=== PATIENT | male | born 1975 | race Caucasian/White ===

== ENCOUNTER 2016-08-20 08:50 | Inpatient (IN) | payer OTHER ==
[2016-08-20 10:29] VITALS: BMI 23.3
--- NOTE | 2016-08-20 11:31 | HP ---
COWS - Scale Resting Pulse: 1= [place] 81-100 Sweatin=Flushed/Facial Moisture Restless Observation: 3= Extraneous Movement Pupil Size: 2= Moderately Dilated Bone or Joint Aches: 2= Severe Diffuse Aches Runny Nose/ Eye Tearin= Runny Nose/Eyes GI Upset > 30mins: 3= Vomiting/Diarrhea Tremor Observation: 2= Slight Tremor Visible Yawning Observation: 2= >3x During Session Anxiety or Irritability: 2=Irritable/Anxious Goose Flesh Skin: 0=Smooth Skin COWS Score: 21 Admission ROS BHS - HPI Chief Complaint: i need help to stop using heroin Allergies/Adverse Reactions: Allergies Allergy/AdvReac Type Severity Reaction Status Date / Time No Known Allergies Allergy Verified 08/20/16 11:08 History of Present Illness: this 40 years old male with heroin dependence,withdrawal symptom,never been in detox before type 2 dm non compliance nicotine dependence need help to stop using drug heroin Exam Limitations: No Limitations - Ebola screening Have you traveled outside of the country in the last 21 days: No Have you had contact with anyone from an Ebola affected area: No Have you been sick,other than usual withdrawal symptoms: No - Review of Systems Constitutional: Chills, Diaphoresis, Loss of Appetite, Malaise, Night Sweats, Changes in sleep, Weakness, Unintentional Wgt. Loss EENT: reports: Tearing, Nose Congestion Respiratory: reports: No Symptoms reported Cardiac: reports: No Symptoms Reported GI: reports: Diarrhea, Nausea, Vomiting, Abdominal cramping : reports: No Symptoms Reported Musculoskeletal: reports: Joint Pain, Muscle Pain, Joint Stiffness Integumentary: reports: Dryness Neuro: reports: Headache, Tremors Endocrine: reports: No Symptoms Reported, Other (type 2 dm) Hematology: reports: No Symptoms Reported Psychiatric: reports: Judgement Intact, Mood/Affect Appropiate, Orientated x3 Patient History - Patient Medical History Hx Anemia: No Hx Asthma: No Hx Chronic Obstructive Pulmonary Disease (COPD): No Hx Cancer: No Hx Cardiac Disorders: No Hx Hypertension: No Hx Hypercholesterolemia: No Hx Seizures: No Hx Diabetes: Yes (NIDDM non compliance) Hx Gastrointestinal Disorders: No Hx Liver Disease: Yes (ELEVATED ENZYMES) Hx Genitourinary Disorders: No Hx Sexually Transmitted Disorders: No Hx Renal Disease (ESRD): No Hx Thyroid Disease: No Hx Human Immunodeficiency Virus (HIV): No (last 2016 negative) Hx Hepatitis C: Yes (under care of pmd) Hx Depression: No Hx Suicide Attempt: No Hx Bipolar Disorder: No Hx Schizophrenia: No Other Medical History: no suicidal,no homicidal - Patient Surgical History Past Surgical History: Yes Hx Neurologic Surgery: No Hx Cataract Extraction: No Hx Cardiac Surgery: No Hx Lung Surgery: No Hx Breast Surgery: No Hx Breast Biopsy: No Hx Abdominal Surgery: No Hx Appendectomy: No Hx Cholecystectomy: No Hx Genitourinary Surgery: No Hx Section: No Hx Orthopedic Surgery: No Other Surgical History: left inguinal hernia repair in 2000 - PPD History Previous Implant?: Yes Documented Results: Negative w/o proof Implanted On Prior [facility] Admission?: No PPD to be Administered?: Yes - Smoking Cessation Smoking history: Current every day smoker Have you smoked in the past 12 months: Yes Aproximately how many cigarettes per day: 40 Hx Chewing Tobacco Use: No Initiated information on smoking cessation: Yes 'Breaking Loose' booklet given: 08/20/16 - Substance & Tx. History Hx Alcohol Use: No Hx Substance Use: Yes Substance Use Type: Heroin Hx Substance Use Treatment: No - Substances Abused heroin Route: Injection Frequency: Daily Amount used: 20 bags Age of first use: 28 Date of Last Use: 08/19/16 Family Disease History - Family Disease History Family History: Denies Admission Physical Exam S - Vital Signs Vital Signs: Vital Signs - 24 hr 08/20/16 10:26 Temperature 97.1 F L Pulse Rate 80 Respiratory 18 Rate Blood Pressure 109/70 - Physical General Appearance: Yes: Moderate Distress, Tremorous, Irritable, Sweating, Anxious HEENTM: Yes: Hearing grossly Normal, Normal ENT Inspection, MAX, Pharynx Normal , Nasal Congestion Respiratory: Yes: Lungs Clear, Normal Breath Sounds, No Respiratory Distress Neck: Yes: Within Normal Limits Breast: Yes: Within Normal Limits Cardiology: Yes: Within Normal Limits, Regular Rate, S1, S2 Abdominal: Yes: Within Normal Limits, Normal Bowel Sounds, Non Tender, Soft Genitourinary: Yes: Within Normal Limits Back: Yes: Within Normal Limits, Normal Inspection, Muscle Spasm Musculoskeletal: Yes: full range of Motion, Back pain, Muscle Pain Extremities: Yes: Normal Inspection, Normal Range of Motion, Tremors 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 intact, Fully Oriented, Alert, Motor Strength 5/5 Integumentary: Yes: Dry, Track Phillips - Diagnostic (1) Opioid dependence with withdrawal Current Visit: Yes Status: Acute (2) DM2 (diabetes mellitus, type 2) Current Visit: Yes Status: Acute (3) Weight loss Current Visit: Yes Status: Acute (4) Hepatitis C Current Visit: Yes Status: Acute (5) Nicotine dependence Current Visit: Yes Status: Acute Cleared for Admission [facility] - Detox or Rehab [facility] Level of Care: Medically Managed Detox Regimen/Protocol: Methadone [facility] Breath Alcohol Content Breath Alcohol Content: 0 Urine Drug Screen - Results Drug Screen Negative: No Urine Drug Screen Results: OPI-Opiates, AMP-Amphetamines, MET-Methamphetamine
[2016-08-20] MEDS ORDERED: IBUPROFEN 400 MG TABLET (FP) PO PRN (11:44)
[2016-08-20] MEDS ORDERED: MENTHOL/PHENOL 1 EACH UD MM PRN (11:44)
[2016-08-20] MEDS ORDERED: ACETAMINOPHEN 325 MG TABLET (FP) PO PRN (11:44)
[2016-08-20] MEDS ORDERED: MAGNESIUM HYDROX 2400MG/30ML ORAL SUSPENSION 30 ML CUP PO PRN (11:44)
[2016-08-20] MEDS ORDERED: hydrOXYzine PAMOATE 50 MG CAPSULE (FP) PO PRN (11:44)
[2016-08-20] MEDS ORDERED: MAGNESIUM CITRATE 300 ML BOTTLE PO PRN (11:44)
[2016-08-20] MEDS ORDERED: MAG HYDROX/AL HYDROX/SIMETH 30 ML UNIT-DOSE CUP PO PRN (11:44)
[2016-08-20] MEDS ORDERED: guaiFENesin/D-METHORPHAN HB 10 ML UNIT-DOSE CUPS PO PRN (11:44)
[2016-08-20] MEDS ORDERED: NICOTINE POLACRILEX 2 MG GUM BC PRN (11:44)
[2016-08-20] MEDS ORDERED: P-EPHED 60MG/TRIPROLIDI 2.5MG TABLET PO PRN (11:44)
[2016-08-20] MEDS ORDERED: METHADONE HCL 10 MG TABLET (FOR DETOX USE ONLY) PO ONE ×2 (13:30→23:00)
[2016-08-20] MEDS: diazePAM 5 MG TABLET PO PRN ×2 (13:39→21:07)
[2016-08-20] MEDS: NICOTINE 21 MG/24 HOURS TOPICAL PATCH TD SCH (13:43)
[2016-08-20 19:46] LABS: URINE APPEARANCE CLEAR; URINE BILIRUBIN NEGATIVE (NEGATIVE); URINE BLOOD NEGATIVE (NEGATIVE); URINE COLOR DKYELLOW; URINE GLUCOSE (UA) NEGATIVE (NEGATIVE); URINE KETONE NEGATIVE (NEGATIVE); URINE LEUK ESTERASE NEGATIVE (NEGATIVE); URINE NITRITE NEGATIVE (NEGATIVE); URINE PROTEIN NEGATIVE (NEGATIVE); URINE UROBILINOGEN NEGATIVE E.U./dl (0.2-1.0)
[2016-08-20] MEDS: cloNIDine HCL 0.1 MG TABLET PO SCH (22:21)
[2016-08-20] MEDS: THIAMINE HCL 100 MG TABLET (FP) PO SCH (22:21)
[2016-08-21] MEDS: diazePAM 5 MG TABLET PO PRN ×3 (08:40→22:18)
--- NOTE | 2016-08-21 09:55 | PN ---
BHS COWS - Scale Resting Pulse: 0= [place] 80 or Below Sweatin=Flushed/Facial Moisture Restless Observation: 3= Extraneous Movement Pupil Size: 1= Pupils >than Normal Bone or Joint Aches: 2= Severe Diffuse Aches Runny Nose/ Eye Tearin= Nasal Congestion GI Upset > 30mins: 1= Stomach Cramp Tremor Observation of Outstretched Hands: 1= Tremor [place], Not Seen Yawning Observation: 0= None Anxiety or Irritability: 2=Irritable/Anxious Goose Flesh Skin: 0=Smooth Skin COWS Score: 13 BHS Progress Note (SOAP) Subjective: interrupted sleep, sweats, shakes, nausea, nasal congestion , restless Objective: 08/21/16 09:53 Vital Signs Temperature 97.9 F 08/21/16 06:27 Pulse Rate 63 08/21/16 06:27 Respiratory Rate 16 08/21/16 06:27 Blood Pressure 100/64 08/21/16 06:27 O2 Sat by Pulse Oximetry (%) Laboratory Tests 08/20/16 08/20/16 08/20/16 11:22 14:00 16:32 POC Glucometer 126 142 Urine Color Dkyellow Urine Appearance Clear Urine pH 5.0 Ur Specific [place] 1.030 Urine Protein Negative Urine Glucose (UA) Negative Urine Ketones Negative Urine Blood Negative Urine Nitrite Negative Urine Bilirubin Negative Urine Urobilinogen Negative Ur Leukocyte Esterase Negative 08/21/16 07:37 POC Glucometer 96 Urine Color Urine Appearance Urine pH Ur Specific [place] Urine Protein Urine Glucose (UA) Urine Ketones Urine Blood Urine Nitrite Urine Bilirubin Urine Urobilinogen Ur Leukocyte Esterase pending labs pt aox3 in nad ambulating Assessment: 08/21/16 09:54 withdrawal sx's 08/21/16 09:54 Plan: cont. detox increase fluids f/up pending labs flexeril prn
[2016-08-21 09:57] LABS: MCHC 33.4 g/dl (32.0-35.9); MEAN CELL VOLUME 86.7 fl (80-96); MEAN PLT VOLUME 9.1 fl (7.5-11.1); PLATELET COUNT 242 K/MM3 (134-434); RDW 14.3 % (11.9-15.9); WHITE BLOOD COUNT 13.2 K/mm3 (4.0-10.0)
[2016-08-21] MEDS ORDERED: METHADONE HCL 10 MG TABLET (FOR DETOX USE ONLY) PO ONE (10:00)
[2016-08-21] MEDS: PRENATAL VITAMINS W/ FOLIC ACID TABLET (FP) PO SCH (10:14)
[2016-08-21] MEDS: cloNIDine HCL 0.1 MG TABLET PO SCH ×2 (10:15→22:18)
[2016-08-21] MEDS: NICOTINE 21 MG/24 HOURS TOPICAL PATCH TD SCH (10:15)
[2016-08-21 10:27] LABS: ALBUMIN 3.7 g/dl (3.4-5.0); ALK PHOS 118 U/L (45-117); ANION GAP 8 (8-16); BILIRUBIN,TOTAL 0.8 mg/dL (0.2-1.0); CALCIUM 9.3 mg/dL (8.5-10.1); CO2 28 mmol/L (21-32); COCKROFT - GAULT 123.89; CREATININE 0.9 mg/dL (0.7-1.3); GLUCOSE,RANDOM 106 mg/dL (74-106); SGOT/AST 84 U/L (15-37); SGPT/ALT 142 U/L (12-78); TOT PROT 7.7 g/dl (6.4-8.2)
[2016-08-21 12:58] LABS: HIV 1 & 2 AB NEGATIVE; HIV 1 AGp24 NEGATIVE
[2016-08-21 13:04] LABS: SICKLE CELL SCREEN NEGATIVE (NEGATIVE)
--- NOTE | 2016-08-21 13:15 | EKG ---
Test Reason : Blood Pressure : / mmHG Vent. Rate : 075 BPM Atrial Rate : 075 BPM P-R Int : 164 ms QRS Dur : 098 ms QT Int : 410 ms P-R-T Axes : 062 077 060 degrees QTc Int : 457 ms NORMAL SINUS RHYTHM NORMAL ECG NO PREVIOUS ECGS AVAILABLE Confirmed by TACOS MENESES, AP ([id number] on 08/21/2016 1:15:15 PM Referred By: Darshan Almonte Confirmed By:AP BALDERRAMA MD
[2016-08-21] MEDS: CYCLOBENZAPRINE HCL 10 MG TABLET (FP) PO PRN (22:18)
[2016-08-21] MEDS: THIAMINE HCL 100 MG TABLET (FP) PO SCH (22:18)
[2016-08-22] MEDS ORDERED: METHADONE HCL 5 MG TABLET (FOR DETOX USE ONLY) PO ONE (10:00)
--- NOTE | 2016-08-22 10:22 | PN ---
S COWS - Scale Resting Pulse: 0= [place] 80 or Below Sweatin= Chills/Flushing Restless Observation: 1= Difficult to Sit Still Pupil Size: 1= Pupils >than Normal Bone or Joint Aches: 1= Mild Discomfort Runny Nose/ Eye Tearin= Nasal Congestion GI Upset > 30mins: 1= Stomach Cramp Tremor Observation of Outstretched Hands: 1= Tremor [place], Not Seen Yawning Observation: 1= 1-2x During Session Anxiety or Irritability: 1=Feels Anxious/Irritable Goose Flesh Skin: 3=Piloerection COWS Score: 12 S Progress Note (SOAP) Subjective: interrupted sleep, lbp, yawning Objective: 08/22/16 10:19 Vital Signs Temperature 97.5 F L 08/22/16 06:00 Pulse Rate 60 08/22/16 06:00 Respiratory Rate 18 08/22/16 06:00 Blood Pressure 121/78 08/22/16 06:00 O2 Sat by Pulse Oximetry (%) Laboratory Tests 08/20/16 08/20/16 08/20/16 11:22 13:00 14:00 WBC RBC Hgb Hct MCV MCHC RDW Plt Count MPV Sickle Cell Screen Sodium Potassium Chloride Carbon Dioxide Anion Gap BUN Creatinine Creat Clearance w eGFR POC Glucometer 126 Random Glucose Calcium Total Bilirubin AST ALT Alkaline Phosphatase Total Protein Albumin Urine Color Dkyellow Urine Appearance Clear Urine pH 5.0 Ur Specific [place] 1.030 Urine Protein Negative Urine Glucose (UA) Negative Urine Ketones Negative Urine Blood Negative Urine Nitrite Negative Urine Bilirubin Negative Urine Urobilinogen Negative Ur Leukocyte Esterase Negative RPR Titer HIV 1&2 Antibody Screen Negative HIV P24 Antigen Negative 08/20/16 08/21/16 08/21/16 16:32 06:00 06:00 WBC 13.2 H D RBC 4.90 Hgb 14.2 Hct 42.5 MCV 86.7 MCHC 33.4 RDW 14.3 Plt Count 242 MPV 9.1 Sickle Cell Screen Negative Sodium 137 Potassium 4.4 Chloride 101 Carbon Dioxide 28 Anion Gap 8 BUN 13 Creatinine 0.9 Creat Clearance w eGFR > 60 POC Glucometer 142 Random Glucose 106 Calcium 9.3 Total Bilirubin 0.8 AST 84 H D ALT 142 H D Alkaline Phosphatase 118 H D Total Protein 7.7 Albumin 3.7 Urine Color Urine Appearance Urine pH Ur Specific [place] Urine Protein Urine Glucose (UA) Urine Ketones Urine Blood Urine Nitrite Urine Bilirubin Urine Urobilinogen Ur Leukocyte Esterase RPR Titer HIV 1&2 Antibody Screen HIV P24 Antigen 08/21/16 08/21/16 08/21/16 06:00 07:37 16:31 WBC RBC Hgb Hct MCV MCHC RDW Plt Count MPV Sickle Cell Screen Sodium Potassium Chloride Carbon Dioxide Anion Gap BUN Creatinine Creat Clearance w eGFR POC Glucometer 96 104 Random Glucose Calcium Total Bilirubin AST ALT Alkaline Phosphatase Total Protein Albumin Urine Color Urine Appearance Urine pH Ur Specific [place] Urine Protein Urine Glucose (UA) Urine Ketones Urine Blood Urine Nitrite Urine Bilirubin Urine Urobilinogen Ur Leukocyte Esterase RPR Titer Nonreactive HIV 1&2 Antibody Screen HIV P24 Antigen pt aox3 in nad ambulating + yawning 08/22/16 10:28 Assessment: 08/22/16 10:20 withdrawal sx;s lbp 08/22/16 10:26 08/22/16 10:28 Plan: cont. detox increase fluids lidocaine patch
[2016-08-22] MEDS ORDERED: LIDOCAINE 5% TOPICAL PATCH TP ONE (10:29)
[2016-08-22] MEDS: PRENATAL VITAMINS W/ FOLIC ACID TABLET (FP) PO SCH (10:41)
[2016-08-22] MEDS: cloNIDine HCL 0.1 MG TABLET PO SCH ×2 (10:41→22:40)
[2016-08-22] MEDS: diazePAM 5 MG TABLET PO PRN ×3 (10:42→22:40)
[2016-08-22] MEDS: NICOTINE 21 MG/24 HOURS TOPICAL PATCH TD SCH (10:42)
[2016-08-22] MEDS: CYCLOBENZAPRINE HCL 10 MG TABLET (FP) PO PRN (22:40)
[2016-08-22] MEDS: THIAMINE HCL 100 MG TABLET (FP) PO SCH (22:40)
[2016-08-22] MEDS: diphenhydrAMINE HCL 50 MG CAPSULE PO PRN (22:40)
[2016-08-23] MEDS: diazePAM 5 MG TABLET PO PRN (08:54)
[2016-08-23] MEDS ORDERED: METHADONE HCL 5 MG TABLET (FOR DETOX USE ONLY) PO ONE (10:00)
[2016-08-23] MEDS: LIDOCAINE 5% TOPICAL PATCH TP SCH (10:31)
[2016-08-23] MEDS: PRENATAL VITAMINS W/ FOLIC ACID TABLET (FP) PO SCH (10:31)
[2016-08-23] MEDS: cloNIDine HCL 0.1 MG TABLET PO SCH ×2 (10:31→22:18)
[2016-08-23] MEDS: NICOTINE 21 MG/24 HOURS TOPICAL PATCH TD SCH (10:32)
[2016-08-23 10:51] LABS: BASOPHIL 0.7 % (0-2.0); EOSINOPHIL 1.9 % (0-4.5); MCH 28.8 pg (25.7-33.7); MCHC 33.5 g/dl (32.0-35.9); MEAN CELL VOLUME 86.1 fl (80-96); MEAN PLT VOLUME 8.7 fl (7.5-11.1); NEUTROPHILS 55.6 % (42.8-82.8); PLATELET COUNT 247 K/MM3 (134-434); RDW 14.2 % (11.9-15.9); WHITE BLOOD COUNT 9.3 K/mm3 (4.0-10.0)
[2016-08-23 10:55] LABS: SGOT/AST 95 U/L (15-37); SGPT/ALT 165 U/L (12-78)
--- NOTE | 2016-08-23 10:55 | PN ---
BHS Progress Note (SOAP) Subjective: interrupted sleep, sweats, diarrhea, achy feeling withdrawal Objective: 08/23/16 10:47 Vital Signs Temperature 97.7 F 08/23/16 09:58 Pulse Rate 77 08/23/16 09:58 Respiratory Rate 18 08/23/16 09:58 Blood Pressure 106/68 08/23/16 09:58 O2 Sat by Pulse Oximetry (%) Laboratory Tests 08/20/16 08/20/16 08/20/16 11:22 13:00 14:00 WBC RBC Hgb Hct MCV MCHC RDW Plt Count MPV Sickle Cell Screen Sodium Potassium Chloride Carbon Dioxide Anion Gap BUN Creatinine Creat Clearance w eGFR POC Glucometer 126 Random Glucose Calcium Total Bilirubin AST ALT Alkaline Phosphatase Total Protein Albumin Urine Color Dkyellow Urine Appearance Clear Urine pH 5.0 Ur Specific [place] 1.030 Urine Protein Negative Urine Glucose (UA) Negative Urine Ketones Negative Urine Blood Negative Urine Nitrite Negative Urine Bilirubin Negative Urine Urobilinogen Negative Ur Leukocyte Esterase Negative RPR Titer HIV 1&2 Antibody Screen Negative HIV P24 Antigen Negative 08/20/16 08/21/16 08/21/16 16:32 06:00 06:00 WBC 13.2 H D RBC 4.90 Hgb 14.2 Hct 42.5 MCV 86.7 MCHC 33.4 RDW 14.3 Plt Count 242 MPV 9.1 Sickle Cell Screen Negative Sodium 137 Potassium 4.4 Chloride 101 Carbon Dioxide 28 Anion Gap 8 BUN 13 Creatinine 0.9 Creat Clearance w eGFR > 60 POC Glucometer 142 Random Glucose 106 Calcium 9.3 Total Bilirubin 0.8 AST 84 H D ALT 142 H D Alkaline Phosphatase 118 H D Total Protein 7.7 Albumin 3.7 Urine Color Urine Appearance Urine pH Ur Specific [place] Urine Protein Urine Glucose (UA) Urine Ketones Urine Blood Urine Nitrite Urine Bilirubin Urine Urobilinogen Ur Leukocyte Esterase RPR Titer HIV 1&2 Antibody Screen HIV P24 Antigen 08/21/16 08/21/16 08/21/16 06:00 07:37 16:31 WBC RBC Hgb Hct MCV MCHC RDW Plt Count MPV Sickle Cell Screen Sodium Potassium Chloride Carbon Dioxide Anion Gap BUN Creatinine Creat Clearance w eGFR POC Glucometer 96 104 Random Glucose Calcium Total Bilirubin AST ALT Alkaline Phosphatase Total Protein Albumin Urine Color Urine Appearance Urine pH Ur Specific [place] Urine Protein Urine Glucose (UA) Urine Ketones Urine Blood Urine Nitrite Urine Bilirubin Urine Urobilinogen Ur Leukocyte Esterase RPR Titer Nonreactive HIV 1&2 Antibody Screen HIV P24 Antigen 08/22/16 08/23/16 16:39 07:04 WBC RBC Hgb Hct MCV MCHC RDW Plt Count MPV Sickle Cell Screen Sodium Potassium Chloride Carbon Dioxide Anion Gap BUN Creatinine Creat Clearance w eGFR POC Glucometer 116 90 Random Glucose Calcium Total Bilirubin AST ALT Alkaline Phosphatase Total Protein Albumin Urine Color Urine Appearance Urine pH Ur Specific [place] Urine Protein Urine Glucose (UA) Urine Ketones Urine Blood Urine Nitrite Urine Bilirubin Urine Urobilinogen Ur Leukocyte Esterase RPR Titer HIV 1&2 Antibody Screen HIV P24 Antigen pt aox3 appearing anxious Assessment: 08/23/16 10:48 withdrawal sx's Plan: cont. detox increase fluids motrin prn clonidinebid
[2016-08-23] MEDS: LOPERAMIDE HCL 2 MG CAPSULE PO PRN (18:43)
[2016-08-23] MEDS: CYCLOBENZAPRINE HCL 10 MG TABLET (FP) PO PRN (22:18)
[2016-08-23] MEDS: diphenhydrAMINE HCL 50 MG CAPSULE PO PRN (22:18)
[2016-08-23] MEDS: THIAMINE HCL 100 MG TABLET (FP) PO SCH (22:18)
[2016-08-24] MEDS ORDERED: METHADONE HCL 10 MG TABLET (FOR DETOX USE ONLY) PO ONE (10:00)
[2016-08-24] MEDS: cloNIDine HCL 0.1 MG TABLET PO SCH ×2 (10:17→22:18)
[2016-08-24] MEDS: LOPERAMIDE HCL 2 MG CAPSULE PO PRN (10:17)
[2016-08-24] MEDS: PRENATAL VITAMINS W/ FOLIC ACID TABLET (FP) PO SCH (10:18)
[2016-08-24] MEDS: LIDOCAINE 5% TOPICAL PATCH TP SCH (10:18)
[2016-08-24] MEDS: NICOTINE 21 MG/24 HOURS TOPICAL PATCH TD SCH (10:18)
--- NOTE | 2016-08-24 12:53 | PN ---
BHS Progress Note (SOAP) Subjective: Stomach Cramping, Diarrhea, Interrupted sleep, Sweating, Body Aches. Objective: PT. A & O X 3, OBSERVED AMBULATING ON UNIT. 08/24/16 12:51 Vital Signs Temperature 97.9 F 08/24/16 11:57 Pulse Rate 74 08/24/16 11:57 Respiratory Rate 20 08/24/16 11:57 Blood Pressure 98/66 08/24/16 11:57 O2 Sat by Pulse Oximetry (%) Laboratory Last Values WBC 9.3 K/mm3 (4.0-10.0) 08/23/16 07:00 RBC 5.02 M/mm3 (4.00-5.60) 08/23/16 07:00 Hgb 14.5 GM/dL (11.7-16.9) 08/23/16 07:00 Hct 43.2 % (35.4-49) 08/23/16 07:00 MCV 86.1 fl (80-96) 08/23/16 07:00 MCHC 33.5 g/dl (32.0-35.9) 08/23/16 07:00 RDW 14.2 % (11.9-15.9) 08/23/16 07:00 Plt Count 247 K/MM3 (134-434) 08/23/16 07:00 MPV 8.7 fl (7.5-11.1) 08/23/16 07:00 Neutrophils % 55.6 % (42.8-82.8) 08/23/16 07:00 Lymphocytes % 31.7 % (8-40) D 08/23/16 07:00 Monocytes % 10.1 % (3.8-10.2) 08/23/16 07:00 Eosinophils % 1.9 % (0-4.5) D 08/23/16 07:00 Basophils % 0.7 % (0-2.0) 08/23/16 07:00 Sickle Cell Screen Negative (NEGATIVE) 08/21/16 06:00 Sodium 137 mmol/L (136-145) 08/21/16 06:00 Potassium 4.4 mmol/L (3.5-5.1) 08/21/16 06:00 Chloride 101 mmol/L (98-107) 08/21/16 06:00 Carbon Dioxide 28 mmol/L (21-32) 08/21/16 06:00 Anion Gap 8 (8-16) 08/21/16 06:00 BUN 13 mg/dL (7-18) 08/21/16 06:00 Creatinine 0.9 mg/dL (0.7-1.3) 08/21/16 06:00 Creat Clearance w eGFR > 60 (>60) 08/21/16 06:00 POC Glucometer 132 UNITS (()) 08/23/16 16:33 Random Glucose 106 mg/dL (74-106) 08/21/16 06:00 Calcium 9.3 mg/dL (8.5-10.1) 08/21/16 06:00 Total Bilirubin 0.8 mg/dL (0.2-1.0) 08/21/16 06:00 AST 95 U/L (15-37) H 08/23/16 07:00 ALT 165 U/L (12-78) H 08/23/16 07:00 Alkaline Phosphatase 118 U/L (45-117) H D 08/21/16 06:00 Total Protein 7.7 g/dl (6.4-8.2) 08/21/16 06:00 Albumin 3.7 g/dl (3.4-5.0) 08/21/16 06:00 Urine Color Dkyellow 08/20/16 14:00 Urine Appearance Clear 08/20/16 14:00 Urine pH 5.0 (5.0-8.0) 08/20/16 14:00 Ur Specific [place] 1.030 (1.001-1.035) 08/20/16 14:00 Urine Protein Negative (NEGATIVE) 08/20/16 14:00 Urine Glucose (UA) Negative (NEGATIVE) 08/20/16 14:00 Urine Ketones Negative (NEGATIVE) 08/20/16 14:00 Urine Blood Negative (NEGATIVE) 08/20/16 14:00 Urine Nitrite Negative (NEGATIVE) 08/20/16 14:00 Urine Bilirubin Negative (NEGATIVE) 08/20/16 14:00 Urine Urobilinogen Negative E.U./dl (0.2-1.0) 08/20/16 14:00 Ur Leukocyte Esterase Negative (NEGATIVE) 08/20/16 14:00 RPR Titer Nonreactive (NONREACTIVE) 08/21/16 06:00 HIV 1&2 Antibody Screen Negative 08/20/16 13:00 HIV P24 Antigen Negative 08/20/16 13:00 LABS NOTED. Assessment: 08/24/16 12:52 WITHDRAWAL SYMPTOMS. Plan: CONTINUE DETOX. ADVISED PATIENT TO FOLLOW-UP WITH [facility] / REHAB MEDICAL PROVIDER AFTER DISCHARGE FROM DETOX FOR GENERAL MEDICAL ASSESSMENT AND FOR ABNORMAL ADMISSION LAB VALUES.
[2016-08-24] MEDS: diphenhydrAMINE HCL 50 MG CAPSULE PO PRN (22:18)
[2016-08-24] MEDS: THIAMINE HCL 100 MG TABLET (FP) PO SCH (22:18)
[2016-08-25] MEDS ORDERED: METHADONE HCL 5 MG TABLET (FOR DETOX USE ONLY) PO ONE (06:00)
[2016-08-25] MEDS: PRENATAL VITAMINS W/ FOLIC ACID TABLET (FP) PO SCH (09:54)
[2016-08-25] MEDS: cloNIDine HCL 0.1 MG TABLET PO SCH (09:54)
[2016-08-25] MEDS: LOPERAMIDE HCL 2 MG CAPSULE PO PRN (09:58)
[2016-08-25 10:49] VITALS: BP 105/70; PULSE 107; TEMP 97
--- NOTE | 2016-08-25 14:31 | DS ---
[facility] Detox Discharge Summary Admission Date: 08/20/16 Discharge Date: 08/25/16 - History Present History: Opioid Dependence Additional Comments: ADVISED PATIENT TO FOLLOW-UP WITH [facility] / REHAB MEDICAL PROVIDER AFTER DISCHARGE FROM DETOX FOR GENERAL MEDICAL ASSESSMENT AND FOR ABNORMAL ADMISSION LAB VALUES. Pertinent Past History: NIDDM, Hep C. - Physical Exam Results Vital Signs: Vital Signs Temperature 97.0 F L 08/25/16 10:48 Pulse Rate 107 H 08/25/16 10:48 Respiratory Rate 18 08/25/16 10:48 Blood Pressure 105/70 08/25/16 10:48 O2 Sat by Pulse Oximetry (%) Pertinent Admission Physical Exam Findings: WITHDRAWAL SYMPTOMS. Laboratory Last Values WBC 9.3 K/mm3 (4.0-10.0) 08/23/16 07:00 RBC 5.02 M/mm3 (4.00-5.60) 08/23/16 07:00 Hgb 14.5 GM/dL (11.7-16.9) 08/23/16 07:00 Hct 43.2 % (35.4-49) 08/23/16 07:00 MCV 86.1 fl (80-96) 08/23/16 07:00 MCHC 33.5 g/dl (32.0-35.9) 08/23/16 07:00 RDW 14.2 % (11.9-15.9) 08/23/16 07:00 Plt Count 247 K/MM3 (134-434) 08/23/16 07:00 MPV 8.7 fl (7.5-11.1) 08/23/16 07:00 Neutrophils % 55.6 % (42.8-82.8) 08/23/16 07:00 Lymphocytes % 31.7 % (8-40) D 08/23/16 07:00 Monocytes % 10.1 % (3.8-10.2) 08/23/16 07:00 Eosinophils % 1.9 % (0-4.5) D 08/23/16 07:00 Basophils % 0.7 % (0-2.0) 08/23/16 07:00 Sickle Cell Screen Negative (NEGATIVE) 08/21/16 06:00 Sodium 137 mmol/L (136-145) 08/21/16 06:00 Potassium 4.4 mmol/L (3.5-5.1) 08/21/16 06:00 Chloride 101 mmol/L (98-107) 08/21/16 06:00 Carbon Dioxide 28 mmol/L (21-32) 08/21/16 06:00 Anion Gap 8 (8-16) 08/21/16 06:00 BUN 13 mg/dL (7-18) 08/21/16 06:00 Creatinine 0.9 mg/dL (0.7-1.3) 08/21/16 06:00 Creat Clearance w eGFR > 60 (>60) 08/21/16 06:00 POC Glucometer 129 UNITS (()) 08/25/16 06:03 Random Glucose 106 mg/dL (74-106) 08/21/16 06:00 Calcium 9.3 mg/dL (8.5-10.1) 08/21/16 06:00 Total Bilirubin 0.8 mg/dL (0.2-1.0) 08/21/16 06:00 AST 95 U/L (15-37) H 08/23/16 07:00 ALT 165 U/L (12-78) H 08/23/16 07:00 Alkaline Phosphatase 118 U/L (45-117) H D 08/21/16 06:00 Total Protein 7.7 g/dl (6.4-8.2) 08/21/16 06:00 Albumin 3.7 g/dl (3.4-5.0) 08/21/16 06:00 Urine Color Dkyellow 08/20/16 14:00 Urine Appearance Clear 08/20/16 14:00 Urine pH 5.0 (5.0-8.0) 08/20/16 14:00 Ur Specific [place] 1.030 (1.001-1.035) 08/20/16 14:00 Urine Protein Negative (NEGATIVE) 08/20/16 14:00 Urine Glucose (UA) Negative (NEGATIVE) 08/20/16 14:00 Urine Ketones Negative (NEGATIVE) 08/20/16 14:00 Urine Blood Negative (NEGATIVE) 08/20/16 14:00 Urine Nitrite Negative (NEGATIVE) 08/20/16 14:00 Urine Bilirubin Negative (NEGATIVE) 08/20/16 14:00 Urine Urobilinogen Negative E.U./dl (0.2-1.0) 08/20/16 14:00 Ur Leukocyte Esterase Negative (NEGATIVE) 08/20/16 14:00 RPR Titer Nonreactive (NONREACTIVE) 08/21/16 06:00 HIV 1&2 Antibody Screen Negative 08/20/16 13:00 HIV P24 Antigen Negative 08/20/16 13:00 LABS NOTED. - Treatment Hospital Course: Detox Protocol Followed, Detoxed Safely, Responded well, Discharged Condition Good Patient has Accepted a Rehab Referral to: NO - PATIENT TO GO TO [facility] OUTPATIENT PROGRAM FOR FOLOW-UP CARE. - Medication Discharge Medications: Ambulatory Orders Metformin HCl 500 mg PO BID 02/02/15 - Diagnosis (1) DM2 (diabetes mellitus, type 2) Status: Chronic Qualifiers: Diabetes mellitus complication status: without complication Diabetes mellitus longterm insulin use: without joint terminal attack controller use Qualified Code(s): E11.9 - Type 2 diabetes mellitus without complications (2) Hepatitis C Status: Chronic Qualifiers: Viral hepatitis chronicity: chronic Hepatic coma status: without hepatic coma Qualified Code(s): B18.2 - Chronic viral hepatitis C (3) Nicotine dependence Status: Chronic Qualifiers: Nicotine product type: cigarettes Substance use status: uncomplicated Qualified Code(s): F17.210 - Nicotine dependence, cigarettes, uncomplicated (4) Opioid dependence with withdrawal Status: Acute (5) Upper abdominal pain Status: Acute (6) Weight loss Status: Acute - AMA Did Patient Leave Against Medical Advice: No
== END 2016-08-25 10:14 | disposition home or self-care (01) | DRG 773 ==
LOC: YASAS 08:50 → Y6N 11:33
PROVIDERS: ADMIT Internal Medicine Addiction Medicine; ATTEND Internal Medicine Addiction Medicine
PROC: HZ2ZZZZ Detoxification Services for Substance Abuse Treatment (ICD-10-PCS; principal; 2016-08-25)
DX: F11.23 Opioid dependence with withdrawal (principal); F17.210 Nicotine dependence, cigarettes, uncomplicated; E11.9 Type 2 diabetes mellitus without complications; Z79.84 Long term (current) use of oral hypoglycemic drugs; R10.10 Upper abdominal pain, unspecified; B18.2 Chronic viral hepatitis C; R63.4 Abnormal weight loss; Z68.23 Body mass index [BMI] 23.0-23.9, adult
CPT/HCPCS: 36415; 80053; 81003; 84450; 84460; 85025; 85027; 85660; 86593; 87389; 93005; 93010